=== PATIENT | male | born 1945 | race Caucasian/White ===

== ENCOUNTER 2016-09-06 02:45 | Emergency (ER) | payer MEDICARE ==
[~2016-09-06] VITALS: Ht 170.2 cm; Wt 90.9 kg
[~2016-09-06 02:45] MED LIST: CAR2 PO; INDO75CA PO; MORP1DIS IV; OMEP20TA86 PO; OXC20TCR PO; TAM4 PO
[2016-09-06 02:50] VITALS: BP 146/84; PULSE 62; RESP 17; O2SAT 96
--- NOTE | 2016-09-06 03:09 | ED.REPORT ---
HPI-General Illness Date of Service September 06, 2016 ED Provider: Dr. Ranjan Alejo M.D. A 71 year old male with chronic back pain on chronic pain medication presents to the ED in morphine withdrawal with his last dose two days ago. The patient's pharmacy lost his most recent prescription and therefore he ran out of his morphine and oxycodone early. The patient has an appointment with his PCP today for a refill. He normally takes 30 mg morphine twice daily and oxycodone for breakthrough pain. He denies overusing his medication. The patient reports back pain and shakiness currently. He denies other symptoms. Nursing Notes Stated Complaint: MORPHINE WITHDRAWLS Chief Complaint: Substance Abuse Nursing Notes Reviewed: Yes Allergies: Coded Allergies: No Known Allergies (Verified Allergy, Unknown, 09/13/13) Scheduled Doxazosin-Expunged Drug, Do Not Renew! (Doxazosin-Expunged Drug, Do Not Renew!) 2 Mg Tablet 2 MG PO AM 2-8 MG Indomethacin-Expunged Drug, Do Not Renew! (Indomethacin-Expunged Drug, Do Not Renew!) 75 Mg Capsule.sa 75 MG PO ONCE Morphine Sulfate (Morphine Sulfate) 10 Mg/10 Ml Disp.syrin 30 MG IV BID Tamsulosin-Expunged Drug, Do Not Renew! (Flomax-Expunged Drug, Do Not Renew!) 0.4 Mg Capsule 0.4 MG PO DAILY oxyCODONE Hcl-Expunged, Do Not Renew! ([id number], Do Not Renew!) 20 Mg Tber 15 MG PO 5XD Miscellaneous Medications Omeprazole-Expunged Drug, Do Not Renew! (Omeprazole-Expunged Drug, Do Not Renew! ) 20 Mg Tablet. 20 MG PO General Time Seen by MD: 03:05 Chief Complaint Other (Morphine Withdrawal) Hx Obtained From: Patient Arrived By: Walk-in Sudden in Onset?: No Onset Occurred: 2 days ago Context of Onset: Ran out of medication Symptom Duration: Since onset Location: : Back Quality: Painful Severity: Current: Moderate Severity: Maximum: Moderate Pertinent Negative: Relieved by nothing Context Related History: Reports Drug dependence Recent Healthcare: No recent doctor visit Past Medical History Past Medical History Chronic back pain on chronic pain medication Past Surgical History None reported Smoking History Unknown if Ever Smoker Social History Other Social History: Good social support, Ambulatory Status Independent Review of Systems + Morphine withdrawal Full Review of Systems Constitutional: Denies: Fever Respiratory: Denies: Non-productive cough, Shortness of breath GI: Denies: Diarrhea, Vomiting Musculoskeletal: Reports: Back pain Neurologic: Reports: Shaking Complete sys rev & neg: except as marked. Physical Exam Vital Signs Vital Signs Date Time Temp Pulse Resp B/P Pulse Ox O2 Delivery O2 Flow Rate FiO2 09/06/16 03:40 36.4 68 16 152/82 98 Room Air 09/06/16 02:50 36.3 62 17 146/84 96 Room Air Initial VS: Reviewed, Vital signs normal Head / Eyes: Atraumatic, Normocephalic ENT: Conjunctiva normal, No scleral icterus Neck: Supple, Full range of motion Psychiatric: Mood/affect normal, Behavior normal, Normal thought content General/Constitutional: Awake, Alert Appearance / Presentation: Positive: Uncomfortable Respiratory / Chest: Breath sounds NL, Breath sounds = bilat, No respiratory distress Cardiovascular: Regular rhythm, Heart sounds NL Heart Rate / Rhythm: Positive: Tachycardia Skin: Color NL Color / Condition: Positive: Diaphoresis present Neurologic: Oriented X3, Speech NL Movement Abnormality: Positive: Tremor Re-Eval/Medical Decision Med Decision/Clinical Course 71-year-old male who [place] pain [place]. There was some problem with his medications not arriving as scheduled from the mail in pharmacy. He now is in withdrawal from not having medication. He was given a single dose of his morphine and adequate Percocet for the next 12 hours. He will see his doctor this afternoon. Time of Eval: 03:20 Patient Status: Condition improved Re-Evaluation/Progress Note: Discussed with patient diagnosis and plan for discharge. Follow-up and return to the ER instructions given. Patient agrees with plan for care and all questions were addressed. Counseled Regarding: Diagnosis, Need for follow-up, When/why to return to ED Discharge & Departure Primary Impression: Opioid dependence with withdrawal Additional Impression: Chronic pain syndrome Disposition: Home Discharge Condition All VS Reviewed: Yes Condition: Improved Additional Instructions: Morphine 30 mg now. Oxycodone/acetaminophen 5/325, 2 pills every 6 hours as needed for pain/withdrawal, #10 dispensed. Follow up with Dr. Ernst as planned later today. Discuss with her whether buprenorphine might be a reasonable alternative to your current pain management regimen. Referrals: Marilia Ernst MD (PCP) Scribe Attestation Portions of this note were transcribed by Trang Solorzano. I, Dr. Alejo, personally performed the history, physical exam, and medical decision-making; I reviewed and confirmed the accuracy of the information in the transcribed note. Signed by: Audrey Rodgers, 09/06/2016, 04:20 copies to: Marilia Ernst MD, Howard L MD September 06, 2016 03:09 TRANG SOLORZANO September 06, 2016 03:18
[2016-09-06] MEDS ORDERED: _oxyCODONE/APAP 5-325 mg Tablet PO PRN (03:20)
[2016-09-06 03:40] VITALS: BP 152/82; PULSE 68; RESP 16; O2SAT 98
== END 2016-09-06 03:47 | disposition home or self-care (01) ==
LOC: SED 02:45
DX: F11.23 Opioid dependence with withdrawal (principal); G89.4 Chronic pain syndrome; M54.9 Dorsalgia, unspecified; I10 Essential (primary) hypertension; Z76.0 Encounter for issue of repeat prescription